=== PATIENT | female | born 1990 | race Caucasian/White ===

== ENCOUNTER 2022-02-22 19:53 | Inpatient (IN) | payer MEDICAID, SELFPAY ==
--- NOTE | ~2022-02-22 | US_ITS ---
EXAMINATION: US OB limited DATE: 02/23/2022 07:38 INDICATION: Heavy bleeding and cramping during first trimester of . TECHNIQUE: Real-time ultrasound of the pelvis was performed. The interpreting radiologist was not pre sent for the study. COMPARISON: None. FINDINGS: Anteverted uterus measures 10.1 x 5.1 x 5.7 cm. Thickened heterogeneous endometrial complex measuring 2.5 cm in thickness. No discernible gestational sac or pole identified. No discernible h eart motion. The right ovary measures 3.3 x 2.1 x 4.2 cm and contains a 2.6 cm thick-walled centrally anechoic corpus luteum cyst. The left ovary measures 3.1 x 1.6 x 2.4 cm. Trace amount of likely phys iologic free fluid along side the right ovary. IMPRESSION: 1. Thickened heterogeneous endometrial complex with no discernible gestational sac. Differential woul d include failed , early or ectopic . Correlate with clinical history and for any prior outside imaging establishing the dating and/or previous viability of . Reviewed, dictated and finalized at location A. IMPRESSION: 1. Thickened heterogeneous endometrial complex with no discernible gestational sac. Differential would include failed , early or ectopic pr egnancy. Correlate with clinical history and for any prior outside imaging esta blishing the dating and/or previous viability of .
[2022-02-22 19:56] VITALS: BP 125/93; PULSE 102; RESP 16; TEMP 36.5; O2SAT 100
--- NOTE | 2022-02-22 19:59 | ED.ABDPAIN ---
HPI - Abdominal Pain General Chief Complaint: Abdominal Pain Stated Complaint: abd pain, vag bleed, elective yesterday Time Seen by Provider: 02/22/22 19:57 Source: patient Mode of arrival: ambulatory Limitations: no limitations History of Present Illness HPI narrative: Patient is 32 years old white female presents with severe abdominal pain after taking 4 tablets of misoprostol. [facility], patient is 3,. para 0 2 Patient is telling me that she is 9 weeks . She is healthy otherwise Related Data Home Medications Medication Instructions Recorded Confirmed No Home Medications 02/22/22 02/22/22 Allergies Allergy/AdvReac Type Severity Reaction Status Date / Time No Known Allergies Allergy Mild Verified 02/22/22 20:01 Review of Systems Review of Systems: All systems reviewed & are unremarkable except as noted in HPI and below PMFSH Comments Patient denies medical disease, Does not smoke or drink and uses drugs, History of induced twice, Family history is noncontributory Exam Narrative: General appearance: Well-developed, well-nourished, in pain, restless Skin: Normal color Head: Normocephalic, nontraumatic Eyes: Clear conjunctiva ENT: Oropharynx normal, ears normal, nose normal Neck: Supple, nontender Chest and respiratory: Airway patent, no respiratory distress, no accessory muscle use Heart: Regular rate/rhythm Abdomen: Soft, suprapubic tenderness,, no organomegaly, quiet bowel sounds Vascular: Normal peripheral pulses, normal capillary refill. Musculoskeletal: Normal range of motion, nontender back Neurologic: Alert and oriented ?3, : External Female Exam: normal external appearance Speculum Exam - Vagina: normal appearance of the vagina and vaginal bleeding Speculum Exam - Cervix: Cervical os open (Retaining tissue inside the cervix) and Cervical tenderness present Bimanual exam- vagina & uterus: cervical motion tenderness and enlarged Course Course Emergency Course: Currently patient is in labor because of the misoprostol. IV Dilaudid, Zofran, normal saline was given prior to admission. Pelvic exam showed active Reevaluation(s) Reevaluation #1: Dr. [place] Ramirez Date: 02/22/22 Time: 21:19 Vital Signs Vital signs: Vital Signs Temperature 36.5 C 02/22/22 19:56 Pulse Rate 102 H 02/22/22 19:56 Respiratory Rate 16 02/22/22 19:56 Blood Pressure 125/93 H 02/22/22 19:56 Pulse Oximetry 100 02/22/22 19:56 Temperature 36.5 C 02/22/22 19:56 Pulse Rate 102 H 02/22/22 19:56 Respiratory Rate 16 02/22/22 19:56 Blood Pressure 125/93 H 02/22/22 19:56 Pulse Oximetry 100 02/22/22 19:56 MDM - Abdominal Pain MDM Narrative Medical decision making narrative: Abdominal pain secondary to active right now. Differential Diagnosis Differential diagnosis: Likely abdominal pain and other (Miscarriage) Lab Data Result diagrams: 02/22/22 20:19 02/22/22 20:19 Labs: Lab Results 02/22/22 02/22/22 Range/Units 20:19 20:19 WBC 13.8 H (4.5-10.0) K/mm3 RBC 3.50 L (4.2-5.4) M/mm3 Hgb 11.3 L (12.0-15.0) g/dL Hct 34.4 L (37.0-47.0) % MCV 98.3 (80-100) fl MCH 32.3 (26-34) pg MCHC 32.8 (32-36) g/dl RDW 11.8 (11.5-14.5) % Plt Count 337 (150-375) k/mm3 MPV 9.6 (7.4-10.4) fl Immature Gran % (Auto) 0.5 (0-0.5) % Neut % (Auto) 84.9 H (45.5-73.1) % Lymph % (Auto) 8.6 L (18.3-44.2) % [place] % (Auto) 5.3 (2.6-8.5) % Eos % (Auto) 0.3 (0-4.4) % Baso % (Auto) 0.4 (0.2-1.2) % Lymph # (Auto) 1.19 (0.9-3.2) K/mm3 [place] # (Auto) 0.7 H (0.1-
[2022-02-22] MEDS: HYDROmorphone HCL INJ (*CRX) 1 MG/ML SYR 0.5 MG IV PUSH ×2 (20:20→21:22)
[2022-02-22] MEDS: ONDANSETRON INJ 4 MG/2 ML VIAL IV PUSH (20:21)
[2022-02-22] MEDS: SODIUM CHLORIDE 0.9% IV 1,000 ML 999 ML IV CONT (20:22)
[2022-02-22 20:26] LABS: Basophils Absolute Auto 0.1 K/mm3 (0.0-0.1); Basophils Percent Auto 0.4 % (0.2-1.2); Eosinophils Percent Auto 0.3 % (0-4.4); Hematocrit 34.4 % (37.0-47.0); Hemoglobin 11.3 g/dL (12.0-15.0); Immature Granulocyte Absolute 0.07 K/mm3 (0.00-0.031); Immature Granulocyte Percent A 0.5 % (0-0.5); Lymphocytes Absolute Auto 1.19 K/mm3 (0.9-3.2); Lymphocytes Percent Auto 8.6 % (18.3-44.2); Mean Corpuscular HGB Conc 32.8 g/dl (32-36); Mean Corpuscular Hemoglobin 32.3 pg (26-34); Mean Corpuscular Volume 98.3 fl (80-100); Mean Platelet Volume 9.6 fl (7.4-10.4); Monocytes Absolute Auto 0.7 K/mm3 (0.1-0.6); Monocytes Percent Auto 5.3 % (2.6-8.5); Neutrophils Absolute Auto 11.8 K/mm3 (1.3-6.7); Neutrophils Percent Auto 84.9 % (45.5-73.1); Platelet Count Result 337 k/mm3 (150-375); Red Cell Distribution Width 11.8 % (11.5-14.5); White Blood Count 13.8 K/mm3 (4.5-10.0)
[2022-02-22 20:43] LABS: Alanine Aminotransferase 20 U/L (4-35); Albumin Level 4.6 g/dL (3.5-5.1); Alkaline Phosphatase 51 U/L (38-126); Anion Gap 10 mmol/L (8-16); Aspartate Amino Transferase 37 U/L (14-36); Bilirubin,Total 0.6 mg/dL (0.2-1.3); Blood Urea Nitrogen 13 mg/dL (7-17); Calcium 9.2 mg/dL (8.4-10.2); Carbon Dioxide 19 mmol/L (22-30); Chloride 104 mmol/L (98-107); Estimated CRCL calculation 106 ml/min; Estimated Glomerular Filt Rate > 60; Glucose 127 mg/dL (65-110); Lipase 48 U/L (23-300); Potassium 3.7 mmol/L (3.4-5.0); Sodium 133 mmol/L (137-145)
[2022-02-22] MEDS: SODIUM CHLORIDE 0.9% IV 1,000 ML 125 ML IV CONT (21:23)
[2022-02-22 22:08] VITALS: BP 116/55; PULSE 94; RESP 19; O2SAT 99
[2022-02-22 22:20] VITALS: BP 143/100; PULSE 92
[2022-02-22 22:26] VITALS: BMI 23.8
--- NOTE | 2022-02-22 22:26 | OBADM ---
This patient, Maria Valencia, admitted to the OB room [facility] for observation. Patient/family oriented to hospital policies and general routines including ID bracelet, bed and alarms, visiting hours, pain management, procedures, bathroom and other care routines, personal items, smoking policy, room service/diet, and visiting hours. Patient/Family are encouraged to report perceived risks to care and to ask questions if they do not understand what they are told or what they should do.
[2022-02-22 22:30] VITALS: BP 107/75; PULSE 81
[2022-02-22 22:45] VITALS: BP 100/77; PULSE 78
--- NOTE | 2022-02-22 22:55 | PC.NURSE ---
Patient states that she is suppose to take a second dose of Miso, instructed patient to hold off on that at this time and we will confirm with MD about taking it.
[2022-02-22 22:56] VITALS: TEMP 36.9
--- NOTE | 2022-02-22 23:50 | PC.NURSE ---
Patient again asking about her 2nd dose of cytotec that she is suppose to take 4 hours after first dose. paged.
--- NOTE | 2022-02-22 23:55 | PC.NURSE ---
Dr Caceres informed of pain and patients concern regarding 2nd dose of cytotec. Patient has her own medication at the bedside. OK for patient to take her own meds that were prescribed by [facility].
[2022-02-23] VITALS (10 sets, daily range): BP systolic 108–123; BP diastolic 54–89; PULSE 58–86; RESP 11–17; TEMP 36.3–37; O2SAT 100
[2022-02-23] MEDS: HYDROcodone/acetaminophen (*CRX) 10-325 MG TABLET 1 TAB PO ×2 (00:15→05:57)
--- NOTE | 2022-02-23 00:19 | PC.NURSE ---
Patient informed that she make take her second dose of cytotec, patient concerned it will increase her pain. Told patient it was her choice on weather she wants to take it or not. Patient will let me know what she decides.
--- NOTE | 2022-02-23 02:30 | PC.NURSE ---
Patient states that she did not take the second dose of cytotec yet.
--- NOTE | 2022-02-23 05:45 | PC.NURSE ---
Patient resting, states that pain is a 6, medicated for pain.
[2022-02-23] MEDS: SODIUM CHLORIDE 0.9% IV 1,000 ML 125 ML IV CONT (05:57)
--- NOTE | 2022-02-23 06:44 | PC.NURSE ---
0640--Pt informed of NPO status. Plan of care discussed.
--- NOTE | 2022-02-23 06:47 | PC.NURSE ---
0645--Pt reports that she did not take her second dose of Cytotec because she is scared to take it.
--- NOTE | 2022-02-23 07:03 | PM.IMHP ---
H&P: HPI History of Present Illness Date/Time: 02/23/22 07:03 32-year-old female admitted through the ER status post placed in a missed [facility] whose past part of her tissue but continues to bleed. She was seen in the ER and passed some tissue. She is admitted for observation and possible suction D&C. Chief Complaint: incomplete Ab Review of Systems Review of Systems: All systems reviewed & are unremarkable except as noted in HPI and below Meds Home Medications and Allergies Home Medications Medication Instructions Recorded Confirmed Type No Home Medications 02/22/22 02/22/22 History Allergies Allergy/AdvReac Type Severity Reaction Status Date / Time No Known Allergies Allergy Mild Verified 02/22/22 20:01 Vital Signs Vital Signs - 24 hr 02/22/22 19:56 02/22/22 22:08 02/22/22 22:20 Temperature 97.7 F Pulse Rate 102 H 94 92 Respiratory Rate 16 19 Blood Pressure 125/93 H 116/55 L 143/100 H Pulse Oximetry 100 99 02/22/22 22:30 02/22/22 22:45 02/22/22 22:56 Temperature 98.4 F Pulse Rate 81 78 Respiratory Rate Blood Pressure 107/75 100/77 Pulse Oximetry 02/23/22 05:52 02/23/22 06:36 02/23/22 07:00 Temperature Pulse Rate 83 63 66 Respiratory Rate Blood Pressure 110/54 L 108/73 123/58 L Pulse Oximetry Exam Const: General: no acute distress Eyes: General: appearance normal, both eyes and all related structures Neck: Neck: supple and no JVD Thyroid: thyroid normal Resp: Effort & Inspection: normal respiratory effort Auscultation: clear to auscultation bilaterally Cardio: Rate: regular rate Rhythm: regular rhythm GI: Inspection: non-distended GI Palp: Yes Soft to palpation, No Tenderness to palpation present (GI) and No Guarding due to palpation present (GI) Auscultation: normal bowel sounds : External Female Exam: normal external appearance Speculum Exam - Vagina: normal appearance of the vagina Speculum Exam - Cervix: normal appearance of the cervix ( Cervix open but no active bleeding) Bimanual exam- vagina & uterus: enlarged Bimanual Exam- Adnexa, other: normal adnexae Skin: General skin exam: no rashes or lesions noted Extrem: General: normal to inspection and no edema Psych: Mental Status: mental status grossly normal Affect: normal affect H&P: Results Labs Labs: Short CBC 02/22/22 Range/Units 20:19 WBC 13.8 H (4.5-10.0) K/mm3 Hgb 11.3 L (12.0-15.0) g/dL Hct 34.4 L (37.0-47.0) % Plt Count 337 (150-375) k/mm3 BMP 02/22/22 20:19 Sodium 133 L Potassium 3.7 Chloride 104 Carbon Dioxide 19 L BUN 13 Creatinine 0.50 L Glucose 127 H Calcium 9.2 Liver Function 02/22/22 Range/Units 20:19 Total Bilirubin 0.6 (0.2-1.3) mg/dL AST 37 H (14-36) U/L ALT 20 (4-35) U/L Alkaline Phosphatase 51 (38-126) U/L Albumin 4.6 (3.5-5.1) g/dL Assessment and Plan Additional Plan impression: Incomplete AP Plan: Will check an ultrasound for retained products this morning. Will consider suction dilatation and curettage
--- NOTE | 2022-02-23 07:50 | WPDHPUPDATE1 ---
History and Physical Update Update Date/Time: 02/23/22 07:50 History and Physical has been reviewed, including an updated exam of the patient. There are NO changes in the patient's condition. Risks, benefits, and alternatives have been discussed and questions answered. Patient agrees to proceed with procedure.
[2022-02-23] MEDS: LACTATED RINGERS 1,000 ML 30 ML IV CONT (11:30)
--- NOTE | 2022-02-23 11:40 | WPDANESEPPF ---
Anes - Initial Pre Proc Eval Procedure: Operation Date: 02/23/22 12:30 Proposed Procedures p Dilation and Curettage Suction and Sharp - Sea Ramirez MD Date/Time: 02/23/22 11:40 Surgeon: Sea Ramirez MD Pre Op Diagnosis: Patient Data Age: 32 Gender: F Height: 1.57 m Weight: 59 kg Last Vital Signs Temp 36.5 C 02/23/22 07:00 Pulse 63 02/23/22 07:00 Resp 14 02/23/22 07:00 BP 108/73 02/23/22 07:00 Pulse Ox 99 02/22/22 22:08 Allergies Allergy/AdvReac Type Severity Reaction Status Date / Time No Known Allergies Allergy Mild Verified 02/22/22 20:01 Home Medications Medication Instructions Recorded Confirmed Type No Home Medications 02/22/22 02/22/22 History hydrocodone-acetaminophen 1 tablet PO Q4H PRN #20 tablet 02/23/22 Rx Laboratory Tests 02/22/22 02/22/22 20:19 20:19 WBC 13.8 K/mm3 H K/mm3 (4.5-10.0) RBC 3.50 M/mm3 L M/mm3 (4.2-5.4) Hgb 11.3 g/dL L g/dL (12.0-15.0) Hct 34.4 % L % (37.0-47.0) MCV 98.3 fl fl (80-100) MCH 32.3 pg pg (26-34) MCHC 32.8 g/dl g/dl (32-36) RDW 11.8 % % (11.5-14.5) Plt Count 337 k/mm3 k/mm3 (150-375) MPV 9.6 fl fl (7.4-10.4) Immature Gran % (Auto) 0.5 % % (0-0.5) Neut % (Auto) 84.9 % H % (45.5-73.1) Lymph % (Auto) 8.6 % L % (18.3-44.2) [place] % (Auto) 5.3 % % (2.6-8.5) Eos % (Auto) 0.3 % % (0-4.4) Baso % (Auto) 0.4 % % (0.2-1.2) Lymph # (Auto) 1.19 K/mm3 K/mm3 (0.9-3.2) [place] # (Auto) 0.7 K/mm3 H K/mm3 (0.1-0.6) Eos # (Auto) 0.0 K/mm3 K/mm3 (0-0.3) Baso # (Auto) 0.1 K/mm3 K/mm3 (0.0-0.1) Abs Immat Gran (auto) 0.07 K/mm3 H K/mm3 (0.00-0.031) Absolute Neuts (auto) 11.8 K/mm3 H K/mm3 (1.3-6.7) Absolute Nucleated RBC 0.0 K/mm3 K/mm3 (0.0-0.012) Nucleated RBC % 0.0 % % (0.0-0.2) Sodium 133 mmol/L L mmol/L (137-145) Potassium 3.7 mmol/L mmol/L (3.4-5.0) Chloride 104 mmol/L mmol/L (98-107) Carbon Dioxide 19 mmol/L L mmol/L (22-30) Anion Gap 10 mmol/L mmol/L (8-16) BUN 13 mg/dL mg/dL (7-17) Creatinine 0.50 mg/dL L mg/dL (0.7-1.0) Estim Creat Clear Calc 106 ml/min ml/min Estimated GFR > 60 (59 - ) Glucose 127 mg/dL H mg/dL (65-110) Calcium 9.2 mg/dL mg/dL (8.4-10.2) Total Bilirubin 0.6 mg/dL mg/dL (0.2-1.3) AST 37 U/L H U/L (14-36) ALT 20 U/L U/L (4-35) Alkaline Phosphatase 51 U/L U/L (38-126) Total Protein 8.0 g/dL g/dL (6.3-8.2) Albumin 4.6 g/dL g/dL (3.5-5.1) Lipase 48 U/L U/L (23-300) Patient hx anesthesia problems: none Family hx anesthesia problems: none Results Review: All pre-operative results and documents have been reviewed as part of the pre-operative evaluation. Anes - Eval Final PreProcedure Day of Procedure 02/23/22 11:40 Patient weight: normal Heart: regular rate and rhythm Lungs: clear to auscultation and normal air movement Airway: Mallampati scale class II Neurological: alert and oriented Last oral intake: >/= 8 hours ASA classification: I Emergent: no Anesthetic plan: proceed Anesthesia type and monitoring: general GIVS and standard monitoring Results Review: All pre-operative results and documents have been reviewed as part of the pre-operative evaluation. Informed Consent: The patient's anesthetic plan and its attendant risks and benefits were discussed with the patient/family/POA. Questions were solicited and answers provided to the satisfaction of the patient/family/POA.
--- NOTE | 2022-02-23 12:43 | W.PM.PROC2 ---
Procedure Note - Detailed Date of Procedure 02/23/22 Pre-op Diagnosis Post-op Diagnosis Same Procedure Performed Suction dilatation and curettage Surgeon Sea Ramirez MD Anesthesia MAC and Local Indications This is a 32-year-old multi of with failed termination with retained products of conception Findings Uterus sounds to 10cm tissue consistent products of conception Description of Procedure The patient was prepped draped in sterile fashion placed in the supine position. Under excellent IV sedation speculum placed posterior vagina. Anterior lip of cervix grasped with single-tooth tenaculum and 2.5cc 1% xylocaine anesthesia placed at 2, 4, 8, 10:00 a.m. of the cervix. Uterus sounded to 10cm. Serial dilatation with fragmented dilators performed followed by passes the 10. Suction curette. When a good grating sound was heard the instruments removed all were accounted for. She tolerated the procedure well. All sponge, needle, instrument counts were correct. There were no immediate complications Estimated Blood Loss 25 Drains No Packing No Pathology Yes Complications No immediate complications Condition Stable Disposition PACU
--- NOTE | 2022-02-23 12:45 | PM.DS ---
DS: Admitting Diagnosis Discharge Date 02/23/2022 Admitting Diagnosis Incomplete AB DS: Summary Hospital Course Hospital Course: The patient was admitted after a failed termination via next pro stall. Ultrasound showed retained products conception and she was offered suction D&C. She underwent suction dilatation curettage which was unremarkable. Her hospital course was there after unremarkable. She remained afebrile, she was up, voiding without difficulty, ambulating, generally without complaints Time Spent with Patient Time attestation: Total time spent providing and/or coordinating discharge services: Exam Const: General: no acute distress Eyes: General: appearance normal, both eyes and all related structures Neck: Neck: supple and no JVD Thyroid: thyroid normal Resp: Effort & Inspection: normal respiratory effort Auscultation: clear to auscultation bilaterally Cardio: Rate: regular rate Rhythm: regular rhythm GI: Inspection: non-distended GI Palp: Yes Soft to palpation, No Tenderness to palpation present (GI) and No Guarding due to palpation present (GI) Auscultation: normal bowel sounds : General: Yes bladder normal to palpation External Female Exam: normal external appearance Speculum Exam - Vagina: normal vaginal discharge and No vaginal bleeding Speculum Exam - Cervix: nontender Bimanual exam- vagina & uterus: bladder normal to palpation and No Cervical tenderness present OB/external & speculum: No vaginal bleeding Skin: General skin exam: no rashes or lesions noted Extrem: General: normal to inspection and no edema Psych: Mental Status: mental status grossly normal Affect: normal affect DS: Data Data Completed and Pending Pending studies at discharge: Pending at discharge 02/23/22 12:27 Surgical [PTH] Routine Labs on day of discharge: Labs from last 24 hours 02/22/22 02/22/22 20:19 20:19 WBC 13.8 H RBC 3.50 L Hgb 11.3 L Hct 34.4 L MCV 98.3 MCH 32.3 MCHC 32.8 RDW 11.8 Plt Count 337 MPV 9.6 Immature Gran % (Auto) 0.5 Neut % (Auto) 84.9 H Lymph % (Auto) 8.6 L [place] % (Auto) 5.3 Eos % (Auto) 0.3 Baso % (Auto) 0.4 Lymph # (Auto) 1.19 [place] # (Auto) 0.7 H Eos # (Auto) 0.0 Baso # (Auto) 0.1 Abs Immat Gran (auto) 0.07 H Absolute Neuts (auto) 11.8 H Absolute Nucleated RBC 0.0 Nucleated RBC % 0.0 Sodium 133 L Potassium 3.7 Chloride 104 Carbon Dioxide 19 L Anion Gap 10 BUN 13 Creatinine 0.50 L Estim Creat Clear Calc 106 Estimated GFR > 60 Glucose 127 H Calcium 9.2 Total Bilirubin 0.6 AST 37 H ALT 20 Alkaline Phosphatase 51 Total Protein 8.0 Albumin 4.6 Lipase 48 Discharge Plan Discharge Attending physician on discharge: Sea Zarco Discharging Clinician: Sea Zarco Patient Disposition: Home, Self-Care Activity: no straining and pelvic rest Diet: heart healthy Wound Care Instructions: follow printed instructions Discharge Instructions: Admit to [facility] Patient Instructions: Antibiotic Form Stand Alone Forms: General Discharge Information Follow-up/Referrals: PHYSICIAN,RESOURCE CONSERVATIONIST [Primary Care Provider] - Discharge Medications: New hydrocodone-acetaminophen 5-325 mg tablet 1 tablet PO Q4H PRN (Reason: pain) Qty: 20 RF: 0 No Action No Home Medications RF: 0 Date of admission: 02/22/22 21:07 Primary Care Provider: PHYSICIAN,RESOURCE CONSERVATIONIST Admitting Provider: Sea Zarco Attending physician on admission: Sea Zarco Condition: Stable
--- NOTE | 2022-02-23 13:03 | PC.NURSE ---
1101--Report given to ANIMAL PATHOLOGIST.
--- NOTE | 2022-02-23 13:04 | PC.NURSE ---
1130--To OR per bed.
--- NOTE | 2022-02-23 13:52 | PC.NURSE ---
1330--Return to OB unit. VSS. Pt reports pain under control.
== END 2022-02-23 14:15 | disposition home or self-care (01) | DRG 544 ==
LOC: ANHED 20:27 → ANHOBPP 21:21
PROVIDERS: Admitting Provider Obstetrics & Gynecology; Emergency Provider Emergency Medicine; Visit Provider Obstetrics & Gynecology
PROC: 10D17ZZ Extraction of Products of Conception, Retained, Via Natural or Artificial Opening (ICD-10-PCS; principal; 2022-02-23 12:30)
DX: O07.1 Delayed or excessive hemorrhage following failed attempted termination of pregnancy (principal); R10.9 Unspecified abdominal pain
CPT/HCPCS: 36415; 76815; 80053; 83690; 85025; 88305; 96361; 96374; 96375; 96376; 99285; A9270; J0131; J1170; J1885; J2250; J2405; J2704; J3010; J7030; J7120